=== PATIENT | female | born 1990 | race Caucasian/White ===

== ENCOUNTER → 2020-07-06 | Outpatient (CLI) | payer OTHER ==
[~2020-07-06] MED LIST: ALBU90OI INH; AZIT250 PO; Amoxicillin875 MG PO; BIRTH CONTROL; CEPH500 PO; CHOL10002 PO; CLIN300 PO; FAMO20 PO; FLUC150A PO; HYDACE5 PO; IBUP800 PO; MECL25 PO; Macrobid 100 M100 MG PO; NAPR500 PO; NAPR550 PO; Nuvaring Vagin1 EACH VG; OXYACE5T PO; PERM5TC TOP; PHENA200 PO; PRED20 PO; PROCODE120 PO; PROM25 PO; Prednisone20 MG PO; Prenatabs FA T1 EACH PO; Pyridium200 MG PO; RXHYDACE PO; RXNAPNA550 PO; SULTRIDS PO; Zofran Odt4 MG PO
== END | disposition home or self-care (01) ==
LOC: LAB 18:51
DX: J02.9 Acute pharyngitis, unspecified (principal)
CPT/HCPCS: 87081

== ENCOUNTER 2020-12-16 20:27 | Emergency (ER) | payer OTHER ==
[~2020-12-16] VITALS: Ht 170.2 cm; Wt 116.6 kg
[~2020-12-16 20:27] MED LIST changes: -CLIN300 PO; -FLUC150A PO
[2020-12-16] MEDS ORDERED: CLIN300 PO (22:46)
[2020-12-16] MEDS ORDERED: FLUC150A PO (22:47)
== END 2020-12-16 23:00 | disposition home or self-care (01) ==
LOC: ER 20:27
DX: K08.89 Other specified disorders of teeth and supporting structures (principal); Z87.891 Personal history of nicotine dependence
CPT/HCPCS: 99282; A9270

== ENCOUNTER → 2021-11-09 | Outpatient (CLI) | payer OTHER ==
[~2021-11-09] MED LIST changes: +CLIN300 PO; +FLUC150A PO
== END ==
LOC: LAB SHORT 17:33
DX: J02.9 Acute pharyngitis, unspecified (principal)
CPT/HCPCS: 87081

== ENCOUNTER → 2022-05-29 | Outpatient (CLI) | payer OTHER ==
[2022-05-31 11:10] LABS: CHLAMYDIA BY NAA Negative (Negative); GONOCOCCUS BY NAA Negative (Negative); TRICH VAG BY NAA Negative (Negative)
== END ==
LOC: LAB 15:30 → RAD SHORT 15:30
PROVIDERS: Registered Nurse Community Health
DX: Z12.4 Encounter for screening for malignant neoplasm of cervix (principal); Z11.3 Encounter for screening for infections with a predominantly sexual mode of transmission
CPT/HCPCS: 87491; 87591; 87661; G0123

== ENCOUNTER → 2022-10-31 | Outpatient (CLI) | payer SELFPAY | END | disposition home or self-care (01) | LOC: LAB 10:30 → LAB SHORT 10:30 | DX: R30.0 Dysuria (principal) | CPT/HCPCS: 87086 ==

== ENCOUNTER → 2022-12-04 | Outpatient (CLI) | payer SELFPAY | END | disposition home or self-care (01) | LOC: LAB 17:30 → LAB SHORT 17:30 | DX: R10.13 Epigastric pain (principal) | CPT/HCPCS: 86677 ==

== ENCOUNTER → 2024-02-24 | Outpatient (CLI) | payer SELFPAY ==
[2024-02-25 12:10] LABS: Bacterial Vaginosis PCR Negative (NEGATIVE); Candida Group, PCR NOT DETECTED (NOT DETECT)
[2024-02-25 12:11] LABS: Candida glabrata-krusei, PCR DETECTED (NOT DETECT)
== END ==
LOC: LAB SHORT 18:50 → LAB 18:50
PROVIDERS: Registered Nurse Community Health
DX: N89.8 Other specified noninflammatory disorders of vagina (principal)
CPT/HCPCS: 87481; 87661; 87801

== ENCOUNTER 2024-08-31 07:04 | Emergency (ER) | payer SELFPAY ==
[~2024-08-31] VITALS: Ht 170.2 cm; Wt 126.0 kg
[2024-08-31] MEDS ORDERED: OMEP20ER PO (08:29)
[2024-08-31] MEDS ORDERED: Phenazopyridine HCl 100 MG Tab PO ONE (08:45)
[2024-08-31 08:56] LABS: Source, Urine Clean Catch
[2024-08-31 09:05] LABS: Appearance, Urine Cloudy (Clear); Bilirubin, Urine Neg (Neg); Blood, Urine 5+ (Neg); Color, Urine Yellow (P-Yellow); Glucose Qualitative, Urine Neg (Neg); Ketones, Urine Neg (Neg); Leukocyte Esterase, Urine 3+ (Neg); Nitrite, Urine Neg (Neg); Protein, Urine 2+ (Neg); Specific Gravity, Urine 1.005 (1.003-1.022); Urobilinogen, Urine NORM (Normal); pH, Urine 6.5 (5.0-8.0)
[2024-08-31 09:51] VITALS: BP 118/70
[2024-08-31 10:01] LABS: Bacteria Many /hpf; Squamous Epithelial Cells Few /hpf (Few); White Blood Cells, Urine 50-100 /hpf (0-5)
[2024-08-31] MEDS ORDERED: Diflucan150 MG PO ×2 (10:14→10:18)
[2024-08-31] MEDS ORDERED: CEPH500 PO (10:14)
[2024-08-31] MEDS ORDERED: Pyridium100 MG PO (10:19)
== END 2024-08-31 10:23 | disposition home or self-care (01) ==
LOC: ER 07:04
PROVIDERS: Physician Assistant
DX: N39.0 Urinary tract infection, site not specified (principal); R31.9 Hematuria, unspecified; J45.909 Unspecified asthma, uncomplicated; Z87.891 Personal history of nicotine dependence; Z59.89 Other problems related to housing and economic circumstances
CPT/HCPCS: 81001; 81025; 87077; 87086; 87186; 99283; A9270